=== PATIENT | female | born 1955 | race Caucasian/White ===

== ENCOUNTER → 2018-09-09 19:18 | Outpatient (CLI) | payer OTHER, SELFPAY ==
[2018-09-12 12:46] LABS: HPV APTIMA, High Risk Negative (Negative)
== END ==
PROVIDERS: Family Provider Nurse Practitioner; PCP Nurse Practitioner; Referring Provider Nurse Practitioner Women's Health; Visit Provider Nurse Practitioner Women's Health
DX: Z12.4 Encounter for screening for malignant neoplasm of cervix (principal)
CPT/HCPCS: 87624; 88175; G0145

== ENCOUNTER → 2018-09-24 12:05 | Outpatient (CLI) | payer OTHER, SELFPAY ==
--- NOTE | 2018-09-24 12:07 | BI_ITS ---
MAMMOGRAPHY - BILATERAL SCREENING REASON FOR EXAM: Female, 63 years old. Routine annual screening examination. PERTINENT HISTORY: Non-contributory. TECHNIQUE: Digital bilateral breast ayla (3D mammographic acquisition) in the CC and MLO projections. 2-D mediolateral oblique (MLO) and craniocaudad (CC) views of both breasts were obtained. CAD: Full Field Digital Mammography with Computer Added Detection was performed. COMPARISON: Comparison is made with prior study dated June 21, 2017. FINDINGS: Breast Composition: There are scattered areas of fibroglandular density. There are no dominant masses or suspicious calcifications. No other significant abnormalities are identified. There has been no significant change since the prior study. BI/SCREENING MAMM (CAD), BILAT IMPRESSION: Stable bilateral screening mammogram. Yearly follow-up mammogram recommended. (A) ASSESSMENT CATEGORY: BIRADS Category 1: Negative. A letter regarding these results will be sent to the patient by the facility within 30 days. Approximately 10% of breast cancers are not detected by mammography. A normal mammogram should not delay biopsy of a clinically suspicious abnormality. [id number] Electronically Signed: Russell Clemons MD at 14:29 EST Tel [phone], Service support ,
== END ==
PROVIDERS: Family Provider Nurse Practitioner; PCP Nurse Practitioner; Referring Provider Nurse Practitioner Women's Health; Visit Provider Nurse Practitioner Women's Health
DX: Z12.31 Encounter for screening mammogram for malignant neoplasm of breast (principal)
CPT/HCPCS: 77063; 77067

== ENCOUNTER → 2019-01-15 23:17 | Outpatient (CLI) | payer OTHER, SELFPAY ==
[2019-01-15 20:27] VITALS: BMI 24.0
== END ==
PROVIDERS: Family Provider Nurse Practitioner; PCP Nurse Practitioner; Referring Provider Nurse Practitioner; Visit Provider Nurse Practitioner
DX: N30.90 Cystitis, unspecified without hematuria (principal)
CPT/HCPCS: 87086; 87088

== ENCOUNTER → 2019-02-14 08:01 | Outpatient (CLI) | payer OTHER, SELFPAY ==
[2019-02-13 19:37] VITALS: BMI 24.0
[2019-02-14 08:32] LABS: Thyroid Stim Hormone (TSH) 1.62 uIU/mL (0.358-3.74)
== END ==
PROVIDERS: Referring Provider Nurse Practitioner; Visit Provider Nurse Practitioner
DX: E03.9 Hypothyroidism, unspecified (principal)
CPT/HCPCS: 84443

== ENCOUNTER → 2019-09-25 07:09 | Outpatient (CLI) | payer OTHER, SELFPAY ==
[2019-02-13 19:37] VITALS: BMI 24.0
[2019-09-14 18:57] VITALS: BMI 23.0
--- NOTE | 2019-09-25 07:11 | BI_ITS ---
MAMMOGRAPHY - BILATERAL SCREENING REASON FOR EXAM: Female, 64 years old. Routine annual screening examination. PERTINENT HISTORY: Non-contributory. TECHNIQUE: Digital bilateral breast jerrod (3D mammographic acquisition) in the CC and MLO projections. 2-D mediolateral oblique (MLO) and craniocaudad (CC) views of both breasts were obtained. CAD: Full Field Digital Mammography with Computer Added Detection was performed. COMPARISON: Comparison is made with prior study dated September 24, 2018 and June 21, 2017. FINDINGS: Breast Composition: There are scattered areas of fibroglandular density. There are no dominant masses or suspicious calcifications. No other significant abnormalities are identified. There has been no significant change since the prior study. BI/SCREEN MAMM (CAD) W/JERROD BILAT IMPRESSION: Stable bilateral screening mammogram. Yearly follow-up mammogram recommended. (A) ASSESSMENT CATEGORY: BIRADS Category 1: Negative. A letter regarding these results will be sent to the patient by the facility within 30 days. Approximately 10% of breast cancers are not detected by mammography. A normal mammogram should not delay biopsy of a clinically suspicious abnormality. [id number] Electronically Signed: Russell Clemons, at 9:07 EST , Service support ,
== END ==
PROVIDERS: Family Provider Nurse Practitioner; Referring Provider Nurse Practitioner Women's Health; Visit Provider Nurse Practitioner Women's Health
DX: Z12.31 Encounter for screening mammogram for malignant neoplasm of breast (principal)
CPT/HCPCS: 77063; 77067

== ENCOUNTER → 2020-04-05 22:11 | Outpatient (CLI) | payer OTHER, SELFPAY ==
[2020-02-09 17:19] VITALS: BMI 23.0
[2020-04-05 22:25] LABS: Absolute Lymphocyte Count 2.27 X10^3/uL (0.83-4.51); Absolute Neutrophil Count 3.5 X10^3/uL (2.0-7.7); Basophil# 0.05 X10^3/uL; Basophil% 0.8 % (0-1); Eosinophil# 0.12 X10^3/uL; Eosinophils% 1.8 % (0-5); Hematocrit 40.7 % (37-47); Hemoglobin 13.1 g/dL (12.0-15.0); Lymphocyte # 2.27 X10^3/ul (4.0); Lymphocyte % 34.8 % (19-41); Mean Corp Hgb Conc 32.2 g/dL (32-36); Mean Corpuscular Hgb 29.7 pg (27.0-32.0); Mean Corpuscular Volume 92.3 fL (81-99); Mean Platelet Vol. 10.8 fl (6.2-12.0); Monocyte# 0.61 X10^3/uL; Monocyte% 9.3 % (0-10); NRBC Flagged by Analyzer 0 % (0-5); Neutrophil # 3.47 X10^3/uL (2.7-7.7); Neutrophil % 53.1 % (47-70); Platelet Count 282 K/mm3 (150-450); RBC Distribution Width CV 13.1 % (11.6-14.6); RBC Distribution Width SD 44.2 fl (35.1-43.9); Red Blood Count 4.41 M/mm3 (4.2-5.4); White Blood Count 6.5 K/mm3 (4.4-11.0)
[2020-04-05 22:51] LABS: ALB/GLOB Ratio 1.2 RATIO (0.9-2.4); AST(SGOT) 25 U/L (15-37); Alanine Aminotransfer ALT/SGPT 29 U/L (13-56); Albumin, Serum 4.3 g/dL (3.2-5.0); Alkaline Phosphatase 84 U/L (45-117); Anion Gap 7 (5-15); BUN 19 mg/dL (7-18); BUN/Creat Ratio 23.2 RATIO (10-20); Calcium,Total 9.3 mg/dL (8.5-10.1); Chloride 107 mmol/L (98-107); Creatinine, Serum 0.82 mg/dL (0.55-1.02); EST Glomerular Filtration Rate 75 mL/min (>60); Est Glom Filt Rate - Afr Amer 91 mL/min (>60); Globulin 3.6 g/dL (2.2-4.2); Glucose 92 mg/dL (74-106); Potassium 4.1 mmol/L (3.5-5.1); Protein, Total 7.9 g/dL (6.4-8.2); Sodium Level 141 mmol/L (136-145); Thyroid Stim Hormone (TSH) 1.01 uIU/mL (0.358-3.74)
== END ==
PROVIDERS: Visit Provider Nurse Practitioner
DX: E03.9 Hypothyroidism, unspecified (principal); G25.0 Essential tremor
CPT/HCPCS: 80053; 84443; 85025

== ENCOUNTER → 2020-09-26 14:13 | Outpatient (CLI) | payer OTHER, SELFPAY ==
[2019-09-14 18:57] VITALS: BMI 23.0
[2020-07-27 08:43] VITALS: BMI 23.0
--- NOTE | 2020-09-26 14:15 | BI_ITS ---
MAMMOGRAPHY - BILATERAL SCREENING REASON FOR EXAM: Female, 65 years old. Routine annual screening examination. PERTINENT HISTORY: Non-contributory. TECHNIQUE: Digital bilateral breast jerrod (3D mammographic acquisition) in the CC and MLO projections. 2-D mediolateral oblique (MLO) and craniocaudad (CC) views of both breasts were obtained. CAD: Full Field Digital Mammography with Computer Added Detection was performed. COMPARISON: Comparison is made with prior study dated 09/25/2019 and 09/24/2018. FINDINGS: Breast Composition: There are scattered areas of fibroglandular density. There are no dominant masses or suspicious calcifications. No other significant abnormalities are identified. There has been no significant change since the prior study. BI/SCREEN MAMM (CAD) W/JERROD BILAT IMPRESSION: Stable bilateral screening mammogram. Yearly follow-up mammogram recommended. (A) ASSESSMENT CATEGORY: BIRADS Category 1: Negative. A letter regarding these results will be sent to the patient by the facility within 30 days. Approximately 10% of breast cancers are not detected by mammography. A normal mammogram should not delay biopsy of a clinically suspicious abnormality. [id number] Electronically Signed: Russell Clemons, at 15:38 EST , Service support ,
== END ==
PROVIDERS: Referring Provider Obstetrics & Gynecology; Visit Provider Obstetrics & Gynecology
DX: Z12.31 Encounter for screening mammogram for malignant neoplasm of breast (principal)
CPT/HCPCS: 77063; 77067

== ENCOUNTER → 2021-04-24 | Outpatient (CLI) | payer OTHER, SELFPAY ==
[2021-04-24 18:10] VITALS: BMI 23.5
[2021-04-24 22:14] LABS: Absolute Lymphocyte Count 2.26 X10^3/uL (0.83-4.51); Absolute Neutrophil Count 3.3 X10^3/uL (2.0-7.7); Basophil# 0.05 X10^3/uL; Basophil% 0.8 % (0-1); Eosinophil# 0.11 X10^3/uL; Eosinophils% 1.7 % (0-5); Hematocrit 39.8 % (37-47); Hemoglobin 12.9 g/dL (12.0-15.0); Lymphocyte # 2.26 X10^3/ul (0.83-4.51); Lymphocyte % 35.6 % (19-41); Mean Corp Hgb Conc 32.4 g/dL (32-36); Mean Corpuscular Hgb 29.6 pg (27.0-32.0); Mean Corpuscular Volume 91.3 fL (81-99); Mean Platelet Vol. 11.2 fl (6.2-12.0); Monocyte# 0.58 X10^3/uL; Monocyte% 9.1 % (0-10); NRBC Flagged by Analyzer 0 % (0-5); Neutrophil # 3.33 X10^3/uL (2.7-7.7); Neutrophil % 52.6 % (47-70); Platelet Count 294 K/mm3 (150-450); RBC Distribution Width CV 13.2 % (11.6-14.6); RBC Distribution Width SD 44.6 fl (35.1-43.9); Red Blood Count 4.36 M/mm3 (4.2-5.4); White Blood Count 6.3 K/mm3 (4.4-11.0)
[2021-04-24 22:38] LABS: ALB/GLOB Ratio 1.1 RATIO (0.9-2.4); AST(SGOT) 19 U/L (15-37); Alanine Aminotransfer ALT/SGPT 25 U/L (13-56); Albumin, Serum 3.9 g/dL (3.2-5.0); Alkaline Phosphatase 88 U/L (45-117); Anion Gap 9 (5-15); BUN 13 mg/dL (7-18); BUN/Creat Ratio 19.1 RATIO (10-20); Calcium,Total 9.1 mg/dL (8.5-10.1); Chloride 106 mmol/L (98-107); Cholesterol 226 mg/dL (200); Creatinine, Serum 0.68 mg/dL (0.55-1.02); EST Glomerular Filtration Rate 93 mL/min (>60); Est Glom Filt Rate - Afr Amer 112 mL/min (>60); Globulin 3.5 g/dL (2.2-4.2); Glucose 84 mg/dL (74-106); High Density Lipoprotein 74 mg/dL; Potassium 3.7 mmol/L (3.5-5.1); Protein, Total 7.4 g/dL (6.4-8.2); Sodium Level 141 mmol/L (136-145); Thyroid Stim Hormone (TSH) 1.33 uIU/mL (0.358-3.74); Triglycerides 83 mg/dL; Very Low Density Lipoprotein 17 mg/dL (5-40)
== END | disposition home or self-care (01) ==
PROVIDERS: PCP Nurse Practitioner; Referring Provider Nurse Practitioner; Visit Provider Nurse Practitioner
DX: E03.9 Hypothyroidism, unspecified (principal)
CPT/HCPCS: 80053; 80061; 84443; 85025

== ENCOUNTER 2022-01-08 07:55 | Outpatient (CLI) | payer OTHER, SELFPAY ==
--- NOTE | 2022-01-08 07:57 | BI_ITS ---
MAMMOGRAPHY - BILATERAL SCREENING REASON FOR EXAM: Female, 66 years old. Routine annual screening examination. PERTINENT HISTORY: Non-contributory. TECHNIQUE: Digital bilateral breast jerrod (3D mammographic acquisition) in the CC and MLO projections. 2-D mediolateral oblique (MLO) and craniocaudad (CC) views of both breasts were obtained. CAD: Full Field Digital Mammography with Computer Added Detection was performed. COMPARISON: Comparison is made with prior study dated 2019 and 09/25/2019. FINDINGS: Breast Composition: The breasts are heterogeneously dense, which may obscure small masses. There are no dominant masses or suspicious calcifications. No other significant abnormalities are identified. There has been no significant change since the prior study. BI/SCRN MAMM (CAD)W/JERROD BILAT IMPRESSION: Stable bilateral screening mammogram. Yearly follow-up mammogram recommended. (A) ASSESSMENT CATEGORY: BIRADS Category 1: Negative. A letter regarding these results will be sent to the patient by the facility within 30 days. Approximately 10% of breast cancers are not detected by mammography. A normal mammogram should not delay biopsy of a clinically suspicious abnormality. [id number] Electronically Signed: Russell Clemons MD at 9:42 EST ,
== END 2022-01-08 23:59 | disposition home or self-care (01) ==
LOC: OPBI 07:55
PROVIDERS: PCP Nurse Practitioner; Visit Provider Nurse Practitioner Women's Health
DX: Z12.31 Encounter for screening mammogram for malignant neoplasm of breast (principal)
CPT/HCPCS: 77063; 77067

== ENCOUNTER 2022-02-05 07:28 | Outpatient (CLI) | payer OTHER, SELFPAY ==
[2022-02-05 08:19] LABS: Cholesterol 250 mg/dL (200); Glucose 101 mg/dL (74-106); High Density Lipoprotein 72 mg/dL; Triglycerides 89 mg/dL; Very Low Density Lipoprotein 18 mg/dL (5-40)
[2022-02-05 09:04] LABS: Vitamin D,25 Hydroxy 24.3 ng/mL
== END 2022-02-05 23:59 | disposition home or self-care (01) ==
LOC: PAVLAB 07:29
PROVIDERS: PCP Nurse Practitioner; Referring Provider Nurse Practitioner Women's Health; Visit Provider Nurse Practitioner Women's Health
DX: Z13.1 Encounter for screening for diabetes mellitus (principal); Z13.220 Encounter for screening for lipoid disorders; Z13.21 Encounter for screening for nutritional disorder
CPT/HCPCS: 36415; 80061; 82306; 82947

== ENCOUNTER → 2022-05-08 | Outpatient (CLI) | payer OTHER, MEDICARE, SELFPAY ==
[2022-05-08 22:18] LABS: Absolute Lymphocyte Count 1.99 X10^3/uL (0.83-4.51); Absolute Neutrophil Count 3.6 X10^3/uL (2.0-7.7); Basophil# 0.04 X10^3/uL; Basophil% 0.6 % (0-1); Eosinophil# 0.23 X10^3/uL; Eosinophils% 3.6 % (0-5); Hematocrit 39.3 % (37-47); Hemoglobin 12.9 g/dL (12.0-15.0); Lymphocyte # 1.99 X10^3/ul (0.83-4.51); Lymphocyte % 31.4 % (19-41); Mean Corp Hgb Conc 32.8 g/dL (32-36); Mean Corpuscular Hgb 29.9 pg (27.0-32.0); Mean Platelet Vol. 11.6 fl (6.2-12.0); Monocyte# 0.51 X10^3/uL; Monocyte% 8.1 % (0-10); NRBC Flagged by Analyzer 0 % (0-5); Neutrophil # 3.55 X10^3/uL (2.7-7.7); Neutrophil % 56.1 % (47-70); Platelet Count 280 K/mm3 (150-450); RBC Distribution Width CV 13.2 % (11.6-14.6); Red Blood Count 4.32 M/mm3 (4.2-5.4); White Blood Count 6.3 K/mm3 (4.4-11.0)
[2022-05-08 22:36] LABS: ALB/GLOB Ratio 1.1 RATIO (0.9-2.4); AST(SGOT) 23 U/L (15-37); Alanine Aminotransfer ALT/SGPT 31 U/L (13-56); Albumin, Serum 3.8 g/dL (3.2-5.0); Alkaline Phosphatase 86 U/L (45-117); Anion Gap 6 (5-15); BUN 19 mg/dL (7-18); BUN/Creat Ratio 26.9 RATIO (10-20); Calcium,Total 8.8 mg/dL (8.5-10.1); Chloride 107 mmol/L (98-107); Cholesterol 232 mg/dL (200); Creatinine, Serum 0.71 mg/dL (0.55-1.02); EST Glomerular Filtration Rate 88 mL/min (>60); Est Glom Filt Rate - Afr Amer 107 mL/min (>60); Globulin 3.4 g/dL (2.2-4.2); Glucose 131 mg/dL (74-106); High Density Lipoprotein 58 mg/dL; Potassium 3.8 mmol/L (3.5-5.1); Protein, Total 7.2 g/dL (6.4-8.2); Sodium Level 141 mmol/L (136-145); Thyroid Stim Hormone (TSH) 0.41 uIU/mL (0.358-3.74); Triglycerides 216 mg/dL; Very Low Density Lipoprotein 43 mg/dL (5-40)
== END | disposition home or self-care (01) ==
PROVIDERS: Visit Provider Nurse Practitioner
DX: E03.9 Hypothyroidism, unspecified (principal)
CPT/HCPCS: 80053; 80061; 84443; 85025

== ENCOUNTER → 2023-05-15 | Outpatient (CLI) | payer OTHER, MEDICARE, SELFPAY ==
[2023-05-15 21:12] LABS: Absolute Lymphocyte Count 1.77 X10^3/uL (0.83-4.51); Absolute Neutrophil Count 3.6 X10^3/uL (2.0-7.7); Basophil# 0.05 X10^3/uL; Basophil% 0.8 % (0-1); Eosinophil# 0.16 X10^3/uL; Eosinophils% 2.6 % (0-5); Hematocrit 38.7 % (37-47); Hemoglobin 13.1 g/dL (12.0-15.0); Lymphocyte # 1.77 X10^3/ul (0.83-4.51); Lymphocyte % 28.8 % (19-41); Mean Corp Hgb Conc 33.9 g/dL (32-36); Mean Corpuscular Hgb 30.6 pg (27.0-32.0); Mean Corpuscular Volume 90.4 fL (81-99); Mean Platelet Vol. 11.2 fl (6.2-12.0); Monocyte# 0.58 X10^3/uL; Monocyte% 9.4 % (0-10); NRBC Flagged by Analyzer 0 % (0-5); Neutrophil # 3.58 X10^3/uL (2.7-7.7); Neutrophil % 58.2 % (47-70); Platelet Count 311 K/mm3 (150-450); RBC Distribution Width CV 13.2 % (11.6-14.6); RBC Distribution Width SD 43.3 fl (35.1-43.9); Red Blood Count 4.28 M/mm3 (4.2-5.4); White Blood Count 6.2 K/mm3 (4.4-11.0)
[2023-05-15 21:41] LABS: ALB/GLOB Ratio 1.1 RATIO (0.9-2.4); AST(SGOT) 18 U/L (15-37); Alanine Aminotransfer ALT/SGPT 29 U/L (13-56); Albumin, Serum 3.9 g/dL (3.2-5.0); Alkaline Phosphatase 95 U/L (45-117); Anion Gap 9 (5-15); BUN 22 mg/dL (7-18); BUN/Creat Ratio 26.6 RATIO (10-20); Chloride 105 mmol/L (98-107); Cholesterol 234 mg/dL (200); Creatinine, Serum 0.83 mg/dL (0.55-1.02); EST Glomerular Filtration Rate 73 mL/min (>60); Est Glom Filt Rate - Afr Amer 89 mL/min (>60); Globulin 3.6 g/dL (2.2-4.2); Glucose 103 mg/dL (74-106); High Density Lipoprotein 68 mg/dL; Protein, Total 7.5 g/dL (6.4-8.2); Sodium Level 139 mmol/L (136-145); Thyroid Stim Hormone (TSH) 0.23 uIU/mL (0.358-3.74); Triglycerides 158 mg/dL; Very Low Density Lipoprotein 32 mg/dL (5-40)
== END | disposition home or self-care (01) ==
PROVIDERS: Visit Provider Nurse Practitioner
DX: E03.9 Hypothyroidism, unspecified (principal); E78.5 Hyperlipidemia, unspecified
CPT/HCPCS: 80053; 80061; 84443; 85025

== ENCOUNTER → 2023-08-08 | Outpatient (CLI) | payer OTHER, MEDICARE, SELFPAY | END | disposition home or self-care (01) | PROVIDERS: Visit Provider Nurse Practitioner | DX: E03.9 Hypothyroidism, unspecified (principal) | CPT/HCPCS: 84443 ==

== ENCOUNTER → 2023-12-02 | Outpatient (CLI) | payer MEDICARE, SELFPAY ==
--- NOTE | 2023-12-02 09:47 | BI_ITS ---
MAMMOGRAPHY - BILATERAL SCREENING REASON FOR EXAM: Female, 68 years old. Routine annual screening examination. PERTINENT HISTORY: Non-contributory. TECHNIQUE: Digital bilateral breast jerrod (3D mammographic acquisition) in the CC and MLO projections. 2-D mediolateral oblique (MLO) and craniocaudad (CC) views of both breasts were obtained. CAD: Full Field Digital Mammography with Computer Added Detection was performed. COMPARISON: Comparison is made with prior study dated December 31, 2021 and September 26, 2020. FINDINGS: Breast Composition: The breasts are heterogeneously dense, which may obscure small masses. There are no dominant masses or suspicious calcifications. No other significant abnormalities are identified. There has been no significant change since the prior study. BI/SCRN MAMM (CAD)W/JERROD BILAT IMPRESSION: Stable bilateral screening mammogram. Yearly follow-up mammogram recommended. (A) ASSESSMENT CATEGORY: BIRADS Category 1: Negative. A letter regarding these results will be sent to the patient by the facility within 30 days. Approximately 10% of breast cancers are not detected by mammography. A normal mammogram should not delay biopsy of a clinically suspicious abnormality. [id number] Electronically Signed: Russell Clemons MD at 14:48 EST ,
== END | disposition home or self-care (01) ==
PROVIDERS: PCP Nurse Practitioner; Referring Provider Nurse Practitioner Women's Health; Visit Provider Nurse Practitioner Women's Health
DX: Z12.31 Encounter for screening mammogram for malignant neoplasm of breast (principal)
CPT/HCPCS: 77063; 77067

== ENCOUNTER → 2024-09-09 | Outpatient (CLI) | payer MEDICARE, SELFPAY ==
--- OUTSIDE RECORDS SUMMARY | 2024-09-10 01:21 | XMS RPT_ITS | CCD ---
Author Organization [facility] Care Team Providers Care Commodities Broker Name Role Phone David VALENCIA, Trini Gonsalez Unavailable Mikcy KIM, Raiza Stacy Unavailable [phone] Unavailable Primary Care Provider Unavailabl e Allergies Allergy Classification Reported Allergen(s) Allergy Type Date of Onset Reaction(s) Facility (2 sources) penicillin v drug allergy 7 [facility] (1 source) Penicillins Propensity to adverse reactions 6 Rash [facility] (1 source) Ragweed Propensity to adverse reactions 8 [facility] Work Phone: Medications Current Medications Medication Drug Class(es) Dates Sig (Normalized) Sig (Original) calcium citrate 1500 mg / cholecalciferol 200 unt oral tablet (1 source) Vitamin D Start: 12-06-2008 calcium citrate/vitamin d3(CITRACAL + D 315 MG-200 UNIT TAB) Take two(2) tablets twice daily. 0 12/06/2008 Active cetirizine hydrochloride 10 mg oral tablet (1 source) Histamine-1 Receptor Antagonist Start: 09-27-2006 ZYRTEC 10 MG TAB Indications: Routine gynecological examination as needed 0 09/27/2006 Active multivitamin (DAILY MULTIVITAMIN) ORAL tablet (1 source) Start: 12-12-2010 take 1 tablet by mouth once daily multivitamin (DAILY MULTIVITAMIN) ORAL tablet Indications: Osteopenia Take one(1) tablet daily. 90 Tab 3 12/12/2010 Active Completed/Discontinued Medications Medication Drug Class(es) Dates Sig (Normalized) Sig (Original) levothyroxine sodium 0.1 mg oral tablet (3 sources) l-Thyroxine Start: 06-13-2017 take 1 tablet by mouth once daily SYNTHROID 100 MCG TABS One tablet by mouth daily LEVOTHYROXINE SODIUM [id number] Trini Bowerss CENA Start: 06-13-2017 take 1 tablet by sherrill th once daily SYNTHROID 100 MCG TABS One tablet by mouth daily LEVOTHYROXINE SODIUM [id number] Trini Moyatings CENA LEVOTHYROXINE SO DIUM (SYNTHROID ORAL) Take by mouth. 0 Active Problems Active Problems Problem Classification Problem Date Documented Date Episodic/Chronic Menopausal disorders (2 sources) Atrophic vaginitis; Translations: [Postmenopausal atrophic vaginitis] Onset: 09-27-2006 Resolved: 05-26-2013 05-27-2014 Chronic Thyroid disorders (1 source) Hypothyroidism; Translations: [Hypothyroidism, unspecified] Onset: 05-26-2013 05-26-2013 Chronic Unclassified (1 source) Screening mammography ; Translations: [Encounter for screening mammogram for malignant neoplasm of breast] Onset: 06-13-2017 06-13-2017 Unclassified (1 source) Gynecologic examination ; Translations: [Encounter for gynecological examination (general) (routine) without abnormal findings] Onset: 06-13-2017 06-13-2017 Past or Other Problems Problem Classification Problem Date Documented Da te Episodic/Chronic Other bone disease and musculoskeletal deformities (1 source) Osteopenia; Translations: [Other specified disorders of bone density and structure, unspecified site] Onset: 05-27-2014 05-27-2014 Episodic Results Test Name Value Interpretation Reference Range Facility XR Pelvis and Hip - right AP and Lateral frogon 06-04-2024 IMPRESSION: No acute fracture or dislocation of the pelvis and right hip. Tracer Clerk: LYDIA Transcribe Date/Time: Jun 04 2024 2:11P Dictated by : JIMMIE VITALE MD This examination was interpreted and the report reviewed and electronically signed by: JIMMIE VITALE MD on Jun 04 2024 2:12PM [facility] * * *Final Report* * * DATE OF EXAM: Jun 04 2024 8:43AM LDX 5352 - XR HIP 3V PELV+ AP/LAT RT / PROCEDURE REASON: M25.551pain in the right hip * * * * Physician Interpretation * * * * PELVIS AND RIGHT HIP X-RAY SERIES HISTORY: M25.551pain in the right hip COMPARISON: None available. TECHNIQUE: AP Pelvis, AP Hip and Frog Leg Lateral View of Hip RESULT: Mild right-sided degenerative changes. No fracture or dislocation. [facility] Provider, [facility] [place] - 06/04/2024 * * *Final Report* * * DATE OF EXAM: Jun 04 2024 8:43AM LDX 5352 - XR HIP 3V PELV+ AP/LAT RT / PROCEDURE REASON: M25.551pain in the right hip * * * * Physician Interpretation * * * * PELVIS AND RIGHT HIP X-RAY SERIES HISTORY: M25.551pain in the right hip COMPARISON: None available. TECHNIQUE: AP Pelvis, AP Hip and Frog Leg Lateral View of Hip RESULT: Mild right-sided degenerative changes. No fracture or dislocation. IMPRESSION IMPRESSION: No acute fracture or dislocation of the pelvis and right hip. Tracer Clerk: PSCB Transcribe Date/Time: Jun 04 2024 2:11P Dictated by : JIMMIE VITALE MD This examination was interpreted and the report reviewed and electronically signed by: JIMMIE VITALE MD on Jun 04 2024 2:12PM EST [facility] Radiology Study observation (narrative) [facility] XR Pelvis and Hip - right AP and Lateral frogOrdered By: Cc Provider on 06-04-2024 [facility] Office Visit: est annualon 0 06-13-2017 Documentation of current medications (procedure) Done Invalid Interpretation Code [facility] Fall risk assessment No [facility] Protein mass conc Done [facility] Tobacco smoking status NHIS Never [facility] Tobacco smoking status TXIS Never smoker [facility] Tobacco use [facility] Never smoker Invalid Interpretation Code [facility] Office Visit: est annualon 0 06-11-2016 Breast Mammogram screening Normal Bilateral [facility] Office Visit: est annualon 0 11-11-2012 General categories [Interpretation] of Cervical or vaginal smear or scraping by Cyto stain Normal [facility] Vital Signs Date Time Vital Sign Value Performing Clinician Facility 06-13-2017 09:21-0400 BMI (Body Mass Index) 22.62 kg/m2 Trini Hernandez NP [facility] 06-13-2017 09:21-0400 Body Temperature 97.2 [degF] Trini Hernandez [facility] 06-13-2017 09:21-0400 BP Diastolic 73 mm[Hg] Trini Hernandez CENA [facility] 06-13-2017 09:21-0400 BP Systolic 112 mm[Hg] Trini Hernandez CENA [facility] 06-13-2017 09:21-0400 Height 162.56 cm Trini Hernandez CE[facility] 06-13-2017 09:21-0400 Pulse (Heart Rate) 63 /min Trini Hernandez NP [facility] 06-13-2017 09:21-0400 Respiratory Rate 16 /min Trini Hernandez [facility] 06-13-2017 09:21-0400 Weight 59.78 kg Trini Hernandez NP [facility] Encounters Encounter Date Encounter Type Care Provider Facility Start: 06-04-2024 End: 06-04-2024 Subsequent hospital visit by physician [facility] Comment on above: Pain in right hip [M 25.551] Procedures Date Procedure Procedure Detail Performing Clinician Start: 06-04-2024 Radex hip unilateral with pelvis 2-3 views Fernanda Hammonds APRN.CNP Work Phone: Start: 06-13-2017 Gynecologic examination Routine gynecological exam Raiza Weeks MD Start: 06-13-2017 Screening mammography Mammogram yearly screening Raiza Weeks MD Start: 05-27-2013 Colonoscopy [facility] Start: 05-26-2013 Lipid 1996 panel - Serum or Plasma [facility] Plan of Treatment Date Care Activity Detail Author Start: 07-12-2024 Influenza vaccination Influenza Vaccine (#1) [facility] Start: 12-30-2023 Covid-19 Vaccine ( season) Covid-19 Vaccine ( season) [facility] Start: 11-11-2023 Advance Directive Discussion Advance Directive Discussion [facility] Start: 2022 Pneumococcal Vaccine: 65+ (1 of 1 - PCV) Pneumococcal Vaccine: 65+ (1 of 1 - PCV) [facility] Start: 2022 Screening for osteoporosis Bone Density Screening [facility] Start: 05-26-2018 Lipid panel Lipid Screening [facility] Start: 06-20-2017 Screening for malignant neoplasm of breast Mammogram Screening [facility] Start: 06-13-2017 End: 06-13-2017 Appointment Appointment [facility] Start: 06-13-2017 End: 06-13-2017 Mammogram, screening Mammogram, Screening, both breasts [facility] Start: 2017 RSV Vaccine (1 - 1-dose 60+ series) RSV Vaccine (1 - 1-dose 60+ series) [facility] Start: 05-27-2016 Screening for malignant neoplasm of colon [facility] Start: 05-26-2016 Diabetes Screening Diabetes Screening [facility] Start: 2002 Screening for malignant neoplasm of colon [facility] Start: 02-27-1976 Urine microalbumin profile DTaP,Tdap,Td Vaccine (1 - Tdap) [facility] Start: 1975 Anxiety Screening Anxiety Screening [facility] Start: 1975 Depression Screening Depression Screening [facility] Start: 1975 Hepatitis C screening Hepatitis C Screening [facility] Immunizations Immunization Date Immunization Notes Care Provider Fa [facility] 09-02-2023 influenza virus vacc ine, unspecified formulation Xr Hosp [facility] Payers Date Payer Category Payer Medicare [employer] MEDICARE A ETNA MEDICARE PPO [id number] 2023-Present [phone] [address] [place] [address] PPO [id number] Social History Date Type Detail Facility Start: 05-27-2014 Tobacco smoking stat us NHIS Never smoked tobacco [facility] Start: 05-27-2014 Tobacco use and exposure Smoke less tobacco non-user [facility] Start: 06-28-2022 Alcohol intake Current drinke r of alcohol (finding) [facility] Start: 1955 Sex Assigned At Not on file [facility] Gender identity Not on file [facility] History of Present illness Narrative 06-04-2024 Kian Gann, CT - 06/04/2024 8:00 AM EDT Note Date & Type Note Facility 06-04-2024 History of Presen t illness Narrative Radiology Service Progress Note PATIENT NAME: Holly Bates DATE OF SERVICE: June 04, 2024 TIME: 8:49 AM PATIENT IDENTITY VERIFICATION COMPLETED USING TWO (2) IDENTIFIERS: Name and Date of confirmed by patient verbally. FALL SCREENING: Has the patient had 2 falls in the last year or 1 fall with injury or currently using an Ambulatory Assistive Device (Walker, Cane, Wheelchair, Crutches, etc.)? No PATIENT GENDER DATA: Female. status: : No status: NO. PATIENT RELEVANT IMPLANT DATA REVIEWED: Not Applicable PATIENT PRESENTS WITH AN IMPLANTABLE OR ATTACHED POLISHING WHEEL REPAIRER: No RADIOLOGY DEPARTMENT: General X-ray: Exam(s) Completed: Pelvis X-Ray: Pelvis with Hip Right PERIPHERAL IV DATA: Not applicable SIGNED BY: RAHUL Roy June 04, 2024 8:49 AM documented in this encounter [facility] Additional Source Comments Source Comments (unrecognize d section and content) In the event this informatio n is protected by the Federal Confidentiality of Alcohol and Drug Abuse Patient Records regulations: The Federal rules restrict any use of the information to criminally investigate or prosecute any alcohol or drug abuse patient.[facility] FOR RECORDS PERTAINING TO PATIENTS WHO ARE OR HAVE BEEN ENROLLED IN A CHEMICAL DEPENDENCY/SUBSTANCEABUSE PROGRAM, SOME INFORMATION MAY BE OMITTED. This clinical summary was aggregated from multiple sources. Caution should be exercised in using it in the provision of clinical care. This summary normalizes information from multiple sources, and as a consequence, information in this document may materially change the coding, format and clinical context of patient data. In addition, data may be omitted in some cases. CLINICAL DECISIONS SHOULD BE BASED ON THE PRIMARY CLINICAL RECORDS. [facility] provides no warranty or guarantee of the accuracy or completeness of information in this document.
[2024-09-10 01:41] LABS: Absolute Lymphocyte Count 1.29 X10^3/uL (0.83-4.51); Absolute Neutrophil Count 5.2 X10^3/uL (2.0-7.7); Basophil# 0.03 X10^3/uL; Basophil% 0.4 % (0-1); Eosinophil# 0.06 X10^3/uL; Eosinophils% 0.8 % (0-5); Hematocrit 39.8 % (37-47); Hemoglobin 12.6 g/dL (12.0-15.0); Lymphocyte # 1.29 X10^3/ul (0.83-4.51); Lymphocyte % 17.9 % (19-41); Mean Corp Hgb Conc 31.7 g/dL (32-36); Mean Corpuscular Hgb 30.2 pg (27.0-32.0); Mean Corpuscular Volume 95.4 fL (81-99); Mean Platelet Vol. 11.3 fl (6.2-12.0); Monocyte# 0.58 X10^3/uL; NRBC Flagged by Analyzer 0 % (0-5); Neutrophil # 5.24 X10^3/uL (2.7-7.7); Neutrophil % 72.6 % (47-70); Platelet Count 316 K/mm3 (150-450); RBC Distribution Width CV 13.2 % (11.6-14.6); RBC Distribution Width SD 46.8 fl (35.1-43.9); Red Blood Count 4.17 M/mm3 (4.2-5.4); White Blood Count 7.2 K/mm3 (4.4-11.0)
[2024-09-10 02:08] LABS: ALB/GLOB Ratio 1.2 RATIO (0.9-2.4); AST(SGOT) 18 U/L (15-37); Alanine Aminotransfer ALT/SGPT 27 U/L (13-56); Alkaline Phosphatase 78 U/L (45-117); Anion Gap 6 (5-15); BUN 18 mg/dL (7-18); BUN/Creat Ratio 24.9 RATIO (10-20); Chloride 106 mmol/L (98-107); Cholesterol 217 mg/dL (200); Creatinine, Serum 0.72 mg/dL (0.55-1.02); EST Glomerular Filtration Rate 85 mL/min (>60); Est Glom Filt Rate - Afr Amer 103 mL/min (>60); Globulin 3.4 g/dL (2.2-4.2); Glucose 90 mg/dL (74-106); High Density Lipoprotein 69 mg/dL; Potassium 4.4 mmol/L (3.5-5.1); Protein, Total 7.4 g/dL (6.4-8.2); Sodium Level 140 mmol/L (136-145); Triglycerides 120 mg/dL; Very Low Density Lipoprotein 24 mg/dL (5-40)
== END | disposition home or self-care (01) ==
PROVIDERS: PCP Nurse Practitioner; Referring Provider Nurse Practitioner; Visit Provider Nurse Practitioner
DX: E78.2 Mixed hyperlipidemia (principal); E03.9 Hypothyroidism, unspecified
CPT/HCPCS: 80053; 80061; 84443; 85025

== ENCOUNTER → 2024-12-23 | Outpatient (CLI) | payer MEDICARE, SELFPAY ==
--- NOTE | 2024-12-23 13:41 | BI_ITS ---
PROCEDURE: SCRN MAMM (CAD)W/JERROD BILAT REASON FOR EXAM: F, Age 69 y/o, no family history. Routine annual follow-up. TECHNIQUE: Bilateral screening digital breast tomosynthesis with 2D and 3D images. Computer aided detection. COMPARISON: Prior exam(s) dating back to January 08, 2022.. FINDINGS: The breasts are heterogeneously dense which may obscure small masses. Stable bilateral axillary lymph nodes. No suspicious masses, areas of developing architectural distortion, or suspicious calcifications. Stable examination. BI/SCRN MAMM (CAD)W/JERROD BILAT IMPRESSION: BI-RADS 2: BENIGN. RECOMMEND ANNUAL MAMMOGRAPHIC SCREENING. Follow-up code: Routine Follow-up The patient will be notified of the results by letter. Reading Location: [place] [address]
== END | disposition home or self-care (01) ==
LOC: OPBI 13:40
PROVIDERS: PCP Nurse Practitioner; Referring Provider Nurse Practitioner Women's Health; Visit Provider Nurse Practitioner Women's Health
DX: Z12.31 Encounter for screening mammogram for malignant neoplasm of breast (principal)
CPT/HCPCS: 77063; 77067

== ENCOUNTER → 2025-07-01 | Outpatient (CLI) | payer MEDICARE, SELFPAY ==
--- OUTSIDE RECORDS SUMMARY | 2025-07-01 21:59 | XMS RPT_ITS | CCD ---
Author Organization [facility] Care Team Providers Care Encoding Clerk Name Role Phone Trini Hernandez NP S Unavailable Micky KIM, Raiza Stacy Unavailable Cassius MOP WORKER, MOP WORKER-C Fernanda Primary Care Provider Cassius MOP WORKER, MOP WORKER-C Fenranda Referring Provider [phone] David MOP WORKER, MOP WORKER-C Trini Attending Provider David MOP WORKER, MOP WORKER-C Trini Attending Provider Cassius MOP WORKER, MOP WORKER-C Fernanda Primary Care Provider Cassius MOP WORKER, MOP WORKER-C Fernanda Referring Provider Unavailable Primary Care Provider Unavailmark e Cassius MOP WORKER, Fernanda Primary Care Unavailable Cassius MOP WORKER, Fernanda Attending Unavailable Cassius MOP WORKER, Fernanda Referring Unavailable Cassius MOP WORKER, Fernanda Primary Care Unavailable Trini Hernandez Attending Unavailable Trini Hernandez Referring Unavailable Cassius MOP WORKER, Fernanda Referring Unavailable Trini Hernandez Attending Unavailable Cassius MOP WORKER, Fernanda Primary Care Unavailable Allergies Allergy Classification Reported Allergen(s) Allergy Type Date of Onset Reaction(s) Facility (2 sources) penicillin v drug allergy 7 [facility] (6 sources) Penicillins; Translations: [Penicillins] Allergy to substance 6 [facility] (1 source) Ragweed Propensity to adverse reactions 8 [facility] Work Phone: Medications Current Medications Medication Drug [...] Drug Class(es) Dates Sig (Normalized) Sig (Original) cefuroxime 500 mg oral tablet (2 sources) Cephalosporin Antibacterial Start: 11-06-2022 End: 05-15-2023 take 500 mg by mouth twice daily Cefuroxime Axetil Discontinued 500 MG PO TWICE A DAY November 06, 2022 12:00am May 15, 2023 2:09pm ciprofloxacin 500 mg oral tablet (20 sources) Quinolone Antimicrobial Start: 06-04-2022 End: 11-06-2022 take 1 tablet by mouth twice daily Ciprofloxacin Hcl (Cipro) 500 mg tablet Discontinued 500 MG PO TWICE A DAY June 04, 2022 6:05pm November 06, 2022 4:54pm Start: 07-07-2021 End: 01-08-2022 take 1 tablet by mouth twice daily Ciprofloxacin Hcl (Cipro) 500 mg tablet Discontinued 500 MG PO TWICE A DAY October 26, 2021 4:22pm January 08, 2022 8:18am Start: 09-14-2019 End: 02-09-2020 take 1 tablet by mouth twice daily Ciprofloxacin Hcl (Cipro) 500 mg tablet Discontinued 500 MG PO TWICE A DAY September 14, 2019 7:03pm February 09, 2020 4:08pm Start: 01-15-2019 End: 09-10-2019 take 1 tablet by mouth twice daily Ciprofloxacin Hcl (Cipro) 500 mg tablet Discontinued 500 MG PO TWICE A DAY January 15, 2019 12:00am September 10, 2019 7:10am levothyroxine sodium 0.112 mg oral tablet (20 sources) l-Thyroxine Start: 12-25-2018 End: 05-16-2023 take 112 ug by mouth once daily Levothyroxine Discontinued 112 MCG PO DAILY 90 February 14, 2019 9:30am February 09, 2020 4:07pm Start: 09-09-2018 End: 02-14-2019 take 1 tablet by mouth once daily Levothyroxine (Synthroid) 100 mcg tablet Discontinued 100 MCG PO DAILY September 08, 2018 11:00pm February 14, 2019 9:30am Start: 06-13-2017 take 1 tablet by sherrill th once daily SYNTHROID 100 MCG TABS One tablet by mouth daily LEVOTHYROXINE SODIUM [id number] Trini S Tilton MOP WORKER Start: 06-13-2017 take 1 tablet by sherrill th once daily SYNTHROID 100 MCG TABS One tablet by mouth daily LEVOTHYROXINE SODIUM [id number] Trini S David MOP WORKER LEVOTHYROXINE SO DIUM (SYNTHROID ORAL) Take by mouth. 0 Active Problems Active Problems Problem Classification Problem Date Documented Date Episodic/Chronic Disorders of lipid metabolism (3 sources) Hyperlipidemia; Translations: [Hyperlipidemia, unspecified] Onset: 09-29-2024 05-15-2023 Chronic Menopausal disorders (2 sources) Atrophic vaginitis; Translations: [Postmenopausal atrophic vaginitis] Onset: 09-27-2006 Resolved: 05-26-2013 05-27-2014 Chronic Nutritional deficiencies (4 sources) Vitamin D deficiency; Translations: [Vitamin D deficiency, unspecified] 02-05-2022 Chronic Other connective tissue disease (1 source) Tendinitis of shoulder region; Translations: [Other enthesopathies, not elsewhere classified] 11-06-2022 Episodic Other connective tissue disease (1 source) Tendonitis of right shoulder; Translations: [Other enthesopathies, not elsewhere classified] 11-06-2022 Episodic Other hereditary and degenerative nervous system conditions (4 sources) Hereditary essential tremor; Translations: [Essential tremor] 04-05-2020 Chronic Other screening for suspected conditions (not mental disorders or infectious disease) (1 source) Encounter for screening mammogram for malignant neoplasm of breast; Translations: [Encounter for screening mammogram for malignant neoplasm of breast] Onset: 01-06-2025 Episodic Other upper respiratory disease (4 sources) Seasonal allergy; Translations: [Other seasonal allergic rhinitis] 04-25-2021 Chronic Other upper respiratory infections (2 sources) Acute maxillary sinusitis; Translations: [Acute maxillary sinusitis, unspecified] 11-06-2022 Episodic Thyroid disorders (5 sources) Acquired hypothyroidism; Translations: [Hypothyroidism, unspecified] Onset: 05-26-2013 02-09-2020 Chronic Unclassified (1 source) Screening mammography ; [...] Test Name Value Interpretation Reference Range Facility Reflow Operator Office Visit Reporton 12-23-2024 Reflow Operator Office Visit Report [facility] [address], [address] [place] [address] OFFICE VISIT Date of Service: 12/23/24 MR#: [id number] Acct: [id number] Name: HOLLY YODER IFRAH Rep #: [id number] : 1955 Provider: KENTON tabor Age/Sex: 69/F Location: [facility] Status: Signed Intake Vital Signs 09/09/24 16:59 12/23/24 13:16 12/23/24 13:20 Height 5 ft 4 in 5 ft 4 in 5 ft 4 in Weight: 144 lb 8 oz BMI 24.7 BP 122/84 H 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: No Is patient in pain?: No Allergies Penicillins Allergy (Mild, Verified 12/23/24 13:16) hives Medications ???Medication ???Instructions ???Recorded ???Confirmed ???Type levothyroxine 112 mcg tablet 112 mcg PO DAILY #90 tabs 09/09/24 12/23/24 Rx Is last menstrual period known: No Post menopausal: Yes Patient : No : No [facility] Medical History Vertigo Hypothyroidism Osteopenia Seasonal allergies Family History Other Diabetes Osteoarthritis Thyroid disorder Social History current occupational status: retired Smoking Status: Never smoker alcohol intake: current alcohol intake frequency: holidays/special occasions only substance use type: does not use caffeine: Yes Type: coffee what type of physical activity do you participate in: walking frequency: 3-4 times per week seatbelt use: always 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 Date Name GA/Weeks Outcome Route Bth Weight Infant Gen Labor Lgth Anesthesia Del Locatn Provider FOB Unknown Giovani 1975 Unknown Jeni 1980 Delivery Date: Last Updated by: Yasmine Blake Type 1 Diabetic HPI Encounter for routine gynecological examination Details: HOLLY YODER is a 69 year old who presents for annual exam. Denies concerns Last PAP: Na History of abnormal PAP: no Last mammogram: today pending History of abnormal mammogram: no Colon cancer screening: Up to date/[place] Other preventative health care screenings: Cassius Female Reproductive History Questions: metorrhagia: No and sexually active: No Menopausal Treatment: No HRT, No Vaginal Estrogen, No Osphena, No OTC treatments and No prescription non-hormonal treatment ROS Const Constitutional: Denies fatigue, weight gain or weight loss Cardio Card: Denies chest pain Resp Resp: Denies cough or dyspnea on exertion GI GI: Denies abdominal pain, bloating, change in stool character, constipation or vomiting : Reports as per HPI; Denies difficulty voiding, pelvic pain, urinary frequency, urinary incontinence, urinary urgency, vaginal discharge or vaginal pruritus Exam Const General: cooperative, healthy appearing, no acute distress and well developed Orientation: alert, oriented to person and oriented to place HENVA Head: normal to inspection Neck Neck: normal visual inspection Thyroid: thyroid normal Lymphatic: no lymphadenopathy noted Chest Breast inspection: normal inspection of the breasts and normal inspection of the axillae Breast palpation: normal palpation of the breasts, normal palpation of the axillae and no axillary lymphadenopathy Resp Effort Inspection: normal respiratory effort GI Palpation: soft, no masses and nontender Rectal Exam: deferred External Female Exam: normal external appearance and normal appearance of the urethra Urethra: normal appearance of the urethra and normal palpation Speculum Exam - Vagina: normal appearance of the vagina and normal vaginal discharge Speculum Exam - Cervix: normal appearance of the cervix Bimanual Exam- Vagina Uterus: normal bimanual exam, uterine size normal, uterine shape normal and non-tender Bimanual Exam- Adnexa, other: normal adnexae, no masses, normal and non-tender Pelvic Support: normal Neuro General: patient alert and patient oriented x3 Psych Affect: normal affect Coding Level of Care Code Pelvic/Breast Diagnoses Encounter for gynecological examination without abnormal finding Z01.419 Gynecological examination findings: abnormal findings ABSENT Assessment and Plan Assessment and Plan (1) Encounter for routine gynecological examination: Qualifiers: Gynecological examination findings: abnormal findings ABSENT Qualified Code(s): Z01.419 - Encounter for gynecological examination (general) (routine) without abnormal findings Plan Completed breast (more content not included)... Normal [facility] SCRN MAMM (CAD)W/JERROD BILATo n 12-23-2024 SCRN MAMM (CAD)W/JERROD BILAT [facility] Imaging Services [address] [place] [address] [id number] SCRN MAMM (CAD)W/JERROD BILAT MR#: [id number] Acct: [id number] Name: HOLLY YODER Rep #: [id number] : 1955 F 69 From: Russell martinez MD PCP: Fernanda Hammonds NP-Reyna Status: REG CLI Study: SCRN MAMM (CAD)W/JERROD BILAT Date of Exam: 12/12 01/05 Exam# [id number] Ordering Dr: Trini Hernandez NP MOP WORKER -C PROCEDURE: SCRN MAMM (CAD)W/JERROD BILAT REASON FOR EXAM: F, Age 69 y/o, no family history. Routine annual follow-up. TECHNIQUE: Bilateral screening digital breast tomosynthesis with 2D and 3D images. Computer aided detection. COMPARISON: Prior exam(s) dating back to January 08, 2022.. FINDINGS: The breasts are heterogeneously dense which may obscure small masses. Stable bilateral axillary lymph nodes. No suspicious masses, areas of developing architectural distortion, or suspicious calcifications. Stable examination. BI/SCRN MAMM (CAD)W/JERROD BILAT IMPRESSION: BI-RADS 2: BENIGN. RECOMMEND ANNUAL MAMMOGRAPHIC SCREENING. Follow-up code: Routine Follow-up The patient will be notified of the results by letter. Reading Location: [place] [address] CC: KENTON Hammonds; KENTON Hernandez Center Customer Service Associate: Signed Normal [facility] CBC W/Diff, Automatedon 10-3 Absolute Lymph 1.29 X10 3/uL Normal 0.83-4.51 [facility] Comment on above: Performed By: #### L 500.4050, L501.9520, L500.4100, L100.0100 #### [facility] [address] [place], [address] Absolute Neut 5.2 X10 3/uL Normal 2.0-7.7 [facility] Comment on above: Performed By: #### L 500.4050, L501.9520, L500.4100, L100.0100 #### [facility] [address] [place], [address] Basophils/100 WBC (Bld) 0.4 % Normal 0-1 [facility] Comment on above: Performed By: #### L 500.4050, L501.9520, L500.4100, L100.0100 #### [facility] [address] [place], [address] Eosinophils/100 WBC (Bld) 0.8 % Normal 0-5 [facility] Comment on above: Performed By: #### L 500.4050, L501.9520, L500.4100, L100.0100 #### [facility] [address] [place], [address] Erythrocyte distribution width (RBC) [Ratio] 13.2 % Normal 11.6-14.6 [facility] Comment on above: Performed By: #### L 500.4050, L501.9520, L500.4100, L100.0100 #### [facility] [address] [place], [address] Hematocrit (Bld) [Volume fraction] 39.8 % Normal 37-47 [facility] Comment on above: Performed By: #### L 500.4050, L501.9520, L500.4100, L100.0100 #### [facility] [address] [place], [address] Hemoglobin (Bld) [Mass/Vol] 12.6 g/dL Normal 12.0-15.0 [facility] Comment on above: Performed By: #### L 500.4050, L501.9520, L500.4100, L100.0100 #### [facility] [address] [place], [address] IG% 0.300 Normal 0.0-0.9 [facility] Comment on above: Result Comment: IG% - Immature Granulocytes (promyelocytes, myelocytes and metamyelocytes) > 1% indicates that a LEFT SHIFT is Present. Performed By: #### L 500.4050, L501.9520, L500.4100, L100.0100 #### [facility] [address] [place], [address] Lymphocytes/100 WBC (Bld) 17.9 % Low 19-41 [facility] Comment on above: Performed By: #### L 500.4050, L501.9520, L500.4100, L100.0100 #### [facility] [address] [place], [address] MCH (RBC) [Entitic mass] 30.2 pg Normal 27.0-32.0 [facility] Comment on above: Performed By: #### L 500.4050, L501.9520, L500.4100, L100.0100 #### [facility] [address] [place], [address] MCHC (RBC) [Mass/Vol] 31.7 g/dL Low 32-36 [facility] Comment on above: Performed By: #### L 500.4050, L501.9520, L500.4100, L100.0100 #### [facility] [address] [place], [address] MCV (RBC) [Entitic vol] 95.4 fL Normal 81-99 [facility] Comment on above: Performed By: #### L 500.4050, L501.9520, L500.4100, L100.0100 #### [facility] [address] [place], [address] Monocytes/100 WBC (Bld) 8.0 % Normal 0-10 [facility] Comment on above: Performed By: #### L 500.4050, L501.9520, L500.4100, L100.0100 #### [facility] [address] [place], [address] Neutrophils/100 WBC (Bld) 72.6 % High 47-70 [facility] Comment on above: Performed By: #### L 500.4050, L501.9520, L500.4100, L100.0100 #### [facility] [address] [place], [address] Nucleated RBC (Bld) [#/Vol] 0 10*3/uL Normal 0-5 [facility] Comment on above: Performed By: #### L 500.4050, L501.9520, L500.4100, L100.0100 #### [facility] [address] [place], [address] Platelet mean volume (Bld) [Entitic vol] 11.3 fL Normal 6.2-12.0 [facility] Comment on above: Performed By: #### L 500.4050, L501.9520, L500.4100, L100.0100 #### [facility] [address] [place], [address] Platelets (Bld) [#/Vol] 316 10*3/uL Normal 150-450 [facility] Comment on above: Performed By: #### L 500.4050, L501.9520, L500.4100, L100.0100 #### [facility] [address] [place], [address] RBC (Bld) [#/Vol] 4.17 10*6/uL Low 4.2-5.4 [facility] Comment on above: Performed By: #### L 500.4050, L501.9520, L500.4100, L100.0100 #### [facility] [address] [place], [address] RDW SD 46.8 fl High 35.1-43.9 [facility] Comment on above: Performed By: #### L 500.4050, L501.9520, L500.4100, L100.0100 #### [facility] [address] [place], [address] WBC (Bld) [#/Vol] 7.2 10*3/uL Normal 4.4-11.0 [facility] Comment on above: Performed By: #### L 500.4050, L501.9520, L500.4100, L100.0100 #### [facility] [address] [place], [address] [facility] Albumin [Mass/Vol] 4.0 g/dL Normal 3.2-5.0 [facility] Comment on above: Performed By: #### L 500.4050, L501.9520, L500.4100, L100.0100 #### [facility] [address] [place], [address] Albumin/Globulin [Mass ratio] 1.2 {ratio} Normal 0.9-2.4 [facility] Comment on above: Performed By: #### L 500.4050, L501.9520, L500.4100, L100.0100 #### [facility] [address] [place], [address] ALK P 78 U/L Normal 45-117 [facility] Comment on above: Performed By: #### L 500.4050, L501.9520, L500.4100, L100.0100 #### [facility] [address] [place], [address] ALT [Catalytic activity/Vol] 27 U/L Normal 13-56 [facility] Comment on above: Performed By: #### L 500.4050, L501.9520, L500.4100, L100.0100 #### [facility] [address] [place], [address] AST [Catalytic activity/Vol] 18 U/L Normal 15-37 [facility] Comment on above: Performed By: #### L 500.4050, L501.9520, L500.4100, L100.0100 #### [facility] [address] [place], [address] Bilirubin [Mass/Vol] 0.50 mg/dL Normal 0.20-1.00 [facility] Comment on above: Result Comment: For patients on eltrombopag therapy, use of Dimension Rake TBIL is not recommended. Performed By: #### L 500.4050, L501.9520, L500.4100, L100.0100 #### [facility] [address] [place], [address] BUN/CRE 24.9 RATIO High 10-20 [facility] Comment on above: Performed By: #### L 500.4050, L501.9520, L500.4100, L100.0100 #### [facility] [address] [place], [address] CA,Total 9.0 mg/dL Normal 8.5-10.1 [facility] Comment on above: Performed By: #### L 500.4050, L501.9520, L500.4100, L100.0100 #### [facility] [address] [place], [address] Chloride [Moles/Vol] 106 mmol/L Normal 98-107 [facility] Comment on above: Performed By: #### L 500.4050, L501.9520, L500.4100, L100.0100 #### [facility] [address] [place], [address] CO2 [Moles/Vol] 28.0 mmol/L Normal 21.0-32.0 [facility] Comment on above: Performed By: #### L 500.4050, L501.9520, L500.4100, L100.0100 #### [facility] [address] [place], [address] Creatinine [Mass/Vol] 0.72 mg/dL Normal 0.55-1.02 [facility] Comment on above: Result Comment: The validity of the calculated GFR GFRAA in patients over 70 years has not been determined. Clinical correlation is essential. Performed By: #### L 500.4050, L501.9520, L500.4100, L100.0100 #### [facility] [address] [place], [address] EST GFR - AA 103 mL/min Normal >60 [facility] Comment on above: Result Comment: Afri can Moldovan GFR Calc Performed By: #### L 500.4050, L501.9520, L500.4100, L100.0100 #### [facility] [address] [place], [address] GAP 6 Normal 5-15 [facility] Comment on above: Performed By: #### L 500.4050, L501.9520, L500.4100, L100.0100 #### [facility] [address] [place], [address] GFR/1.73 sq M.predicted among non-blacks MDRD (S/P/Bld) [Vol rate/Area] 85 mL/min/{1.73_m2} Normal >60 [facility] Comment on above: Result Comment: Non- GFR Calc Performed By: #### L 500.4050, L501.9520, L500.4100, L100.0100 #### [facility] [address] [place], [address] Globulin (S) [Mass/Vol] 3.4 g/dL Normal 2.2-4.2 [facility] Comment on above: Performed By: #### L 500.4050, L501.9520, L500.4100, L100.0100 #### [facility] [address] [place], [address] Glucose [Mass/Vol] 90 mg/dL Normal 74-106 [facility] Comment on above: Performed By: #### L 500.4050, L501.9520, L500.4100, L100.0100 #### [facility] [address] [place], [address] Potassium [Moles/Vol] 4.4 mmol/L Normal 3.5-5.1 [facility] Comment on above: Performed By: #### L 500.4050, L501.9520, L500.4100, L100.0100 #### [facility] [address] [place], [address] Sodium [Moles/Vol] 140 mmol/L Normal 136-145 [facility] Comment on above: Performed By: #### L 500.4050, L501.9520, L500.4100, L100.0100 #### [facility] [address] [place], [address] T PROT 7.4 g/dL Normal 6.4-8.2 [facility] Comment on above: Performed By: #### L 500.4050, L501.9520, L500.4100, L100.0100 #### [facility] [address] [place], [address] Urea nitrogen [Mass/Vol] 18 mg/dL Normal 7-18 [facility] Comment on above: Performed By: #### L 500.4050, L501.9520, L500.4100, L100.0100 #### [facility] [address] [place], [address] Lipid Profileon 09-10-2024 Cholesterol [Mass/Vol] 217 mg/dL High 200 [facility] Comment on above: Result Comment: <200 mg/dL Desirable 200-240 mg/dL Borderline >240 mg/dL High Risk Performed By: #### L 500.4050, L501.9520, L500.4100, L100.0100 #### [facility] [address] [place], [address] Cholesterol in HDL [Mass/Vol] 69 mg/dL Normal [facility] Comment on above: Result Comment: The drugs N-Acetylcysteine and Metamizole may falsely depress this assay. Reference Range HDL <40 mg/dL Low HDL Cholesterol HDL >or= 60 mg/dL High HDL Cholesterol Performed By: #### L 500.4050, L501.9520, L500.4100, L100.0100 #### [facility] [address] [place], [address] Cholesterol in LDL [Mass/Vol] 124 mg/dL Normal 0-130 [facility] Comment on above: Performed By: #### L 500.4050, L501.9520, L500.4100, L100.0100 #### [facility] [address] [place], [address] Cholesterol in VLDL [Mass/Vol] 24 mg/dL Normal 5-40 [facility] Comment on above: Performed By: #### L 500.4050, L501.9520, L500.4100, L100.0100 #### [facility] [address] [place], [address] Triglyceride [Mass/Vol] 120 mg/dL Normal [facility] Comment on above: Result Comment: The drugs N-Acetylcysteine and Metamizole may falsely depress this assay. Serum Triglycerides Reference Interval Normal <150 mg/dL Borderline high 150 - 199 mg/dL High 200 - 499 mg/dL Very High > or = 500 mg/dL Performed By: #### L 500.4050, L501.9520, L500.4100, L100.0100 #### [facility] [address] [place], [address] Thyroid Stim Hormone (TSH)on 09-10-2024 TSH 1.640 uIU/mL Normal 0.358-3.740 [facility] Comment on above: Performed By: #### L 500.4050, L501.9520, L500.4100, L100.0100 #### [facility] [address] [place], [address] XR Pelvis and Hip - right AP and Lateral frogon 06-04-2024 IMPRESSION: No acute fracture or dislocation of the pelvis and right hip. Center Customer Service Associate: LYDIA Transcribe Date/Time: Jun 04 2024 2:11P Dictated by : JIMMIE VITALE MD This examination was interpreted and the report reviewed and electronically signed by: JIMMIE VITALE MD on Jun 04 2024 2:12PM EST [facility] * * *Final Report* * [...] right-sided degenerative changes. No fracture or dislocation. [facility] Provider, [facility] - 06/04/2024 * * *Final Report* * [...] dislocation of the pelvis and right hip. Center Customer Service Associate: PSCB Transcribe Date/Time: Jun 04 2024 2:11P Dictated by : JIMMIE VITALE MD This examination was interpreted and the report reviewed and electronically signed by: JIMMIE VITALE MD on Jun 04 2024 2:12PM EST [facility] Radiology Study observation (narrative) [facility] XR Pelvis and Hip - right AP and Lateral frogOrdered By: Ccf Provider on 06-04-2024 [facility] No Panel InformationOrdered By: Fernanda Hammonds on 08-08-2023 Thyroid Stimulating Hormone (TSH) 1.60 uIU/mL 0.358-3.74 [facility] Absolute lymphocyte countOrd ered By: Fernanda Hammonds on 05-15-2023 Lymphocytes Auto (Unsp spec) [#/Vol] 1.77 10*3/uL 0.83-4.51 [facility] Basophil percentageOrdered B y: Fernanda Hammonds on 05-15-2023 Basophils/100 WBC (Bld) 0.8 % 0-1 [facility] Bilirubin [Mass/Vol] 0.30 mg/dL 0.20-1.00 [facility] Comment on above: For patients on eltr ombopag therapy, use of Dimension Rake TBIL is not recommended. Chloride [Moles/Vol] 105 mmol/L 98-107 [facility] Cholesterol [Mass/Vol] 234 mg/dL <200 [facility] Comment on above: <200 mg/dL Desirable 200-240 mg/dL Borderline >240 mg/dL High Risk Eosinophils/100 WBC (Bld) 2.6 % 0-5 [facility] Glucose [Mass/Vol] 103 mg/dL 74-106 [facility] Comment on above: Fasting Glucose resu lt from 100 to 125 mg/dL suggests IMPAIRED HOMEOSTASIS per A.D.A. criteria. Neutrophils (Bld) [#/Vol] 3.6 10*3/uL 2.0-7.7 [facility] Neutrophils/100 WBC (Bld) 58.2 % 47-70 [facility] Potassium [Moles/Vol] 4.0 mmol/L 3.5-5.1 [facility] Protein [Mass/Vol] 7.5 g/dL 6.4-8.2 [facility] Sodium [Moles/Vol] 139 mmol/L 136-145 [facility] Triglyceride [Mass/Vol] 158 mg/dL <199 [facility] Comment on above: The drugs N-Acetylcy steine and Metamizole may falsely depress this assay.Serum Triglycerides Reference Interval Normal <150 mg/dL Borderline high 150 - 199 mg/dL High 200 - 499 mg/dL Very High > or = 500 mg/dL WBC (Bld) [#/Vol] 6.2 10*3/uL 4.4-11.0 [facility] Blood erythrocytes count (nu mber/volume)Ordered By: Fernanda Hammonds on 05-15-2023 RBC (Bld) [#/Vol] 4.28 10*6/uL 4.2-5.4 [facility] Blood hemoglobin measurement (mass/volume)Ordered By: Fernanda Hammonds on 05-15-2023 Hemoglobin (Bld) [Mass/Vol] 13.1 g/dL 12.0-15.0 [facility] Blood lymphocytes/100 leukoc ytesOrdered By: Fernanda Hammonds on 05-15-2023 Lymphocytes/100 WBC (Bld) 28.8 % 19-41 [facility] Blood monocytes/100 leukocyt esOrdered By: Fernanda Hammonds on 05-15-2023 Monocytes/100 WBC (Bld) 9.4 % 0-10 [facility] Blood platelet mean volumeOr dered By: Fernanda Hammonds on 05-15-2023 Platelet mean volume (Bld) [Entitic vol] 11.2 fL 6.2-12.0 [facility] Determination of erythrocyte mean corpuscular volume (MCV)Ordered By: Fernanda Hammonds on 05-15-2023 MCV (RBC) [Entitic vol] 90.4 fL 81-99 [facility] Hematocrit Auto (Bld) [Volum e fraction]Ordered By: Fernanda Hammonds on 05-15-2023 Hematocrit (Bld) [Volume fraction] 38.7 % 37-47 [facility] Laboratory - Chemistry and C hemistry - challengeOrdered By: Fernanda Hammonds on 05-15-2023 ALP [Catalytic activity/Vol] 95 U/L 45-117 [facility] ALT [Catalytic activity/Vol] 29 U/L 13-56 [facility] CO2 [Moles/Vol] 25.0 mmol/L 21.0-32.0 [facility] Globulin (S) [Mass/Vol] 3.6 g/dL 2.2-4.2 [facility] Urea nitrogen/Creatinine [Mass ratio] 26.6 mg/mg 10-20 [facility] Laboratory - Hematology and Cell countsOrdered By: Fernanda Hammonds on 05-15-2023 Erythrocyte distribution width (RBC) [Entitic vol] 43.3 fL 35.1-43.9 [facility] Erythrocyte distribution width (RBC) [Ratio] 13.2 % 11.6-14.6 [facility] Immature granulocytes/100 WBC (Bld) 0.200 % 0.0-0.9 [facility] Comment on above: IG% - Immature Granu locytes (promyelocytes, myelocytes and metamyelocytes) > 1% indicates that a LEFT SHIFT is Present. MCH (RBC) [Entitic mass] 30.6 pg 27.0-32.0 [facility] Nucleated RBC/100 WBC (Bld) [Ratio] 0 % 0-5 [facility] MCHC Auto (RBC) [Mass/Vol]Or dered By: Fernanda Hammonds on 05-15-2023 MCHC (RBC) [Mass/Vol] 33.9 g/dL 32-36 [facility] No Panel InformationOrdered By: Fernanda Hammonds on 05-15-2023 Estimated GFR (MDRD) Amer 89 mL/min >60 [facility] Comment on above: GFR Calc Estimated GFR (MDRD) Non-Af Amer 73 mL/min >60 [facility] Comment on above: Non- GFR Calc Thyroid Stimulating Hormone (TSH) 0.23 uIU/mL 0.358-3.74 [facility] Platelets bldOrdered By: Heraclio Hammonds on 05-15-2023 Platelets (Bld) [#/Vol] 311 10*3/uL 150-450 [facility] Serum or plasma albumin oanh urement (mass/volume)Ordered By: Fernanda Hammonds on 05-15-2023 Albumin [Mass/Vol] 3.9 g/dL 3.2-5.0 [facility] Serum or plasma albumin/glob ulin mass ratioOrdered By: Fernanda Hammonds on 05-15-2023 Albumin/Globulin [Mass ratio] 1.1 {ratio} 0.9-2.4 [facility] Serum or plasma calcium oanh urement (mass/volume)Ordered By: Fernanda Hammonds on 05-15-2023 Calcium [Mass/Vol] 9.0 mg/dL 8.5-10.1 [facility] Serum or plasma cholesterol in HDL measurement (mass/volume)Ordered By: Fernanda Hammonds on 05-15-2023 Cholesterol in HDL [Mass/Vol] 68 mg/dL >40 [facility] Comment on above: The drugs N-Acetylcy steine and Metamizole may falsely depress this assay. Reference Range HDL <40 mg/dL Low HDL Cholesterol HDL >or= 60 mg/dL High HDL Cholesterol Serum or plasma cholesterol in VLDL measurement (mass/volume)Ordered By: Fernanda Hammonds on 05-15-2023 Cholesterol in VLDL [Mass/Vol] 32 mg/dL 5-40 [facility] Serum or plasma creatinine m easurement (mass/volume)Ordered By: Fernanda Hammonds on 05-15-2023 Creatinine [Mass/Vol] 0.83 mg/dL 0.55-1.02 [facility] Comment on above: The validity of the calculated GFR & GFRAA in patients over 70 years has not been determined. Clinical correlation is essential. Serum or plasma low density lipoprotein (LDL) cholesterol measurement (mass/volume)Ordered By: Fernanda Hammonds on 05-15-2023 Cholesterol in LDL [Mass/Vol] 134 mg/dL 0-130 [facility] Serum or plasma urea nitroge n measurement (mass/volume)Ordered By: Fernanda Hammonds on 05-15-2023 Urea nitrogen [Mass/Vol] 22 mg/dL 7-18 [facility] Thin prep Papanicolaou smear with manual screeningOrdered By: Fernanda Hammonds on 05-15-2023 Thin prep Papanicolaou smear with manual screening 18 U/L 15-37 [facility] Thin prep Papanicolaou smear with manual screening 9 5-15 [facility] Absolute lymphocyte counton 05-08-2022 Lymphocytes Auto (Unsp spec) [#/Vol] 1.99 10*3/uL 0.83-4.51 [facility] Work Phone: Basophil percentageon 2021 Basophils/100 WBC (Bld) 0.6 % 0-1 [facility] Work Phone: Bilirubin [Mass/Vol] 0.40 mg/dL 0.20-1.00 [facility] Work Phone: Comment on above: For patients on eltr ombopag therapy, use of Dimension Rake TBIL is not recommended. Chloride [Moles/Vol] 107 mmol/L 98-107 [facility] Work Phone: Cholesterol [Mass/Vol] 232 mg/dL <200 [facility] Work Phone: Comment on above: <200 mg/dL Desirable 200-240 mg/dL Borderline >240 mg/dL High Risk Eosinophils/100 WBC (Bld) 3.6 % 0-5 [facility] Work Phone: Glucose [Mass/Vol] 131 mg/dL 74-106 [facility] Work Phone: Comment on above: Fasting Glucose resu lt greater than or equal to 126 mg/dL suggests DIABETES MELLITUS per A.D.A. criteria. Neutrophils (Bld) [#/Vol] 3.6 10*3/uL 2.0-7.7 [facility] Work Phone: Neutrophils/100 WBC (Bld) 56.1 % 47-70 [facility] Work Phone: Potassium [Moles/Vol] 3.8 mmol/L 3.5-5.1 [facility] Work Phone: Protein [Mass/Vol] 7.2 g/dL 6.4-8.2 [facility] Work Phone: Sodium [Moles/Vol] 141 mmol/L 136-145 [facility] Work Phone: Triglyceride [Mass/Vol] 216 mg/dL <199 [facility] Work Phone: Comment on above: The drugs N-Acetylcy steine and Metamizole may falsely depress this assay.Serum Triglycerides Reference Interval Normal <150 mg/dL Borderline high 150 - 199 mg/dL High 200 - 499 mg/dL Very High > or = 500 mg/dL WBC (Bld) [#/Vol] 6.3 10*3/uL 4.4-11.0 [facility] Work Phone: Blood erythrocytes count (nu mber/volume)on 05-08-2022 RBC (Bld) [#/Vol] 4.32 10*6/uL 4.2-5.4 [facility] Work Phone: Blood hemoglobin measurement (mass/volume)on 05-08-2022 Hemoglobin (Bld) [Mass/Vol] 12.9 g/dL 12.0-15.0 [facility] Work Phone: Blood lymphocytes/100 leukoc yteson 05-08-2022 Lymphocytes/100 WBC (Bld) 31.4 % 19-41 [facility] Work Phone: Blood monocytes/100 leukocyt eson 05-08-2022 Monocytes/100 WBC (Bld) 8.1 % 0-10 [facility] Work Phone: Blood platelet mean volumeon 05-08-2022 Platelet mean volume (Bld) [Entitic vol] 11.6 fL 6.2-12.0 [facility] Work Phone: Determination of erythrocyte mean corpuscular volume (MCV)on 05-08-2022 MCV (RBC) [Entitic vol] 91.0 fL 81-99 [facility] Work Phone: Hematocrit Auto (Bld) [Volum e fraction]on 05-08-2022 Hematocrit (Bld) [Volume fraction] 39.3 % 37-47 [facility] Work Phone: Laboratory - Chemistry and C hemistry - challengeon 05-08-2022 ALP [Catalytic activity/Vol] 86 U/L 45-117 [facility] Work Phone: ALT [Catalytic activity/Vol] 31 U/L 13-56 [facility] Work Phone: CO2 [Moles/Vol] 28.0 mmol/L 21.0-32.0 [facility] Work Phone: Globulin (S) [Mass/Vol] 3.4 g/dL 2.2-4.2 [facility] Work Phone: Urea nitrogen/Creatinine [Mass ratio] 26.9 mg/mg 10-20 [facility] Work Phone: Laboratory - Hematology and Cell countson 05-08-2022 Erythrocyte distribution width (RBC) [Entitic vol] 44.0 fL 35.1-43.9 [facility] Work Phone: Erythrocyte distribution width (RBC) [Ratio] 13.2 % 11.6-14.6 [facility] Work Phone: Immature granulocytes/100 WBC (Bld) 0.200 % 0.0-0.9 [facility] Work Phone: Comment on above: IG% - Immature Granu locytes (promyelocytes, myelocytes and metamyelocytes) > 1% indicates that a LEFT SHIFT is Present. MCH (RBC) [Entitic mass] 29.9 pg 27.0-32.0 [facility] Work Phone: Nucleated RBC/100 WBC (Bld) [Ratio] 0 % 0-5 [facility] Work Phone: MCHC Auto (RBC) [Mass/Vol]on 05-08-2022 MCHC (RBC) [Mass/Vol] 32.8 g/dL 32-36 [facility] Work Phone: No Panel Informationon 05-08 Estimated GFR (MDRD) Amer 107 mL/min >60 [facility] Work Phone: Comment on above: GFR Calc Estimated GFR (MDRD) Non-Af Amer 88 mL/min >60 [facility] Work Phone: Comment on above: Non- GFR Calc Thyroid Stimulating Hormone (TSH) 0.41 uIU/mL 0.358-3.74 [facility] Work Phone: Platelets bldon 05-08-2022 Platelets (Bld) [#/Vol] 280 10*3/uL 150-450 [facility] Work Phone: Serum or plasma albumin oanh urement (mass/volume)on 05-08-2022 Albumin [Mass/Vol] 3.8 g/dL 3.2-5.0 [facility] Work Phone: Serum or plasma albumin/glob ulin mass ratioon 05-08-2022 Albumin/Globulin [Mass ratio] 1.1 {ratio} 0.9-2.4 [facility] Work Phone: Serum or plasma calcium oanh urement (mass/volume)on 05-08-2022 Calcium [Mass/Vol] 8.8 mg/dL 8.5-10.1 [facility] Work Phone: Serum or plasma cholesterol in HDL measurement (mass/volume)on 05-08-2022 Cholesterol in HDL [Mass/Vol] 58 mg/dL >40 [facility] Work Phone: Comment on above: The drugs N-Acetylcy steine and Metamizole may falsely depress this assay. Reference Range HDL <40 mg/dL Low HDL Cholesterol HDL >or= 60 mg/dL High HDL Cholesterol Serum or plasma cholesterol in VLDL measurement (mass/volume)on 05-08-2022 Cholesterol in VLDL [Mass/Vol] 43 mg/dL 5-40 [facility] Work Phone: Serum or plasma creatinine m easurement (mass/volume)on 05-08-2022 Creatinine [Mass/Vol] 0.71 mg/dL 0.55-1.02 [facility] Work Phone: Comment on above: The validity of the calculated GFR & GFRAA in patients over 70 years has not been determined. Clinical correlation is essential. Serum or plasma low density lipoprotein (LDL) cholesterol measurement (mass/volume)on 05-08-2022 Cholesterol in LDL [Mass/Vol] 131 mg/dL 0-130 [facility] Work Phone: Serum or plasma urea nitroge n measurement (mass/volume)on 05-08-2022 Urea nitrogen [Mass/Vol] 19 mg/dL 7-18 [facility] Work Phone: Thin prep Papanicolaou smear with manual screeningon 05-08-2022 Thin prep Papanicolaou smear with manual screening 23 U/L 15-37 [facility] Work Phone: Thin prep Papanicolaou smear with manual screening 6 5-15 [facility] Work Phone: Basophil percentageon 2021 Cholesterol [Mass/Vol] 250 mg/dL <200 [facility] Work Phone: Comment on above: <200 mg/dL Desirable 200-240 mg/dL Borderline >240 mg/dL High Risk Glucose [Mass/Vol] 101 mg/dL 74-106 [facility] Work Phone: Comment on above: Fasting Glucose resu lt from 100 to 125 mg/dL suggests IMPAIRED HOMEOSTASIS per A.D.A. criteria. Triglyceride [Mass/Vol] 89 mg/dL <199 [facility] Work Phone: Comment on above: The drugs N-Acetylcy steine and Metamizole may falsely depress this assay.Serum Triglycerides Reference Interval Normal <150 mg/dL Borderline high 150 - 199 mg/dL High 200 - 499 mg/dL Very High > or = 500 mg/dL No Panel Informationon 02-05 Vitamin D 25-Hydroxy 24.3 ng/mL [facility] Work Phone: Comment on above: Vitamin D 25(OH) Sta tus Range Deficiency <20 ng/mL (50nmol/L) Insufficiency 20 - 30 ng/mL (50 - 75 nmol/L) Sufficiency 30 - 100 ng/mL (75 - 250 nmol/L) Toxicity >100 ng/mL (>250 nmol/L) Serum or plasma cholesterol in HDL measurement (mass/volume)on 02-05-2022 Cholesterol in HDL [Mass/Vol] 72 mg/dL >40 [facility] Work Phone: Comment on above: The drugs N-Acetylcy steine and Metamizole may falsely depress this assay. Reference Range HDL <40 mg/dL Low HDL Cholesterol HDL >or= 60 mg/dL High HDL Cholesterol Serum or plasma cholesterol in VLDL measurement (mass/volume)on 02-05-2022 Cholesterol in VLDL [Mass/Vol] 18 mg/dL 5-40 [facility] Work Phone: Serum or plasma low density lipoprotein (LDL) cholesterol measurement (mass/volume)on 02-05-2022 Cholesterol in LDL [Mass/Vol] 160 mg/dL 0-130 [facility] Work Phone: Laboratory - Chemistry and C hemistry - challengeon 10-26-2021 Bilirubin Ql (U) Negative [facility] Work Phone: Glucose Ql (U) Negative [facility] Work Phone: Ketones Ql (U) Negative [facility] Work Phone: pH (U) 7.0 [pH] [facility] Work Phone: Specific gravity (U) [Rel density] 1.030 [facility] Work Phone: Urobilinogen (U) [Mass/Vol] 0.3177918 mg/dL [facility] Work Phone: Laboratory - Hematology and Cell countson 10-26-2021 Hemoglobin Ql (U) Small [facility] Work Phone: Laboratory - Specimen inform ationon 10-26-2021 Clarity (U) Clear [facility] Work Phone: Color (U) STRAW [facility] Work Phone: Laboratory - Urinalysison Nitrite Ql (U) Negative [facility] Work Phone: Protein Ql (U) Negative [facility] Work Phone: No Panel Informationon 10-26 Urine Bacteria None Seen [facility] Work Phone: Urine Leukocytes Positive [facility] Work Phone: Urine Microscopic RBC Small [facility] Work Phone: Urine Microscopic WBC Moderate [facility] Work Phone: Urine Non-Hemolyzed Blood [facility] Work Phone: Office Visit: est annualon 0 06-13-2017 Documentation of current medications (procedure) Done Invalid Interpretation Code [facility] Tobacco smoking status NHIS Never [facility] Tobacco smoking status NHIS Never smoker [facility] Tobacco use [facility] Never smoker Invalid Interpretation Code [facility] Office Visit: est annualon 0 06-11-2016 Breast Mammogram screening Normal Bilateral [facility] Office Visit: est annualon 0 11-11-2012 General categories [Interpretation] of Cervical or vaginal smear or scraping by Cyto stain Normal [facility] Vital Signs Date Time Vital Sign Value Performing Clinician Facility 12-02-2023 09:12-0500 Body height 162.56 cm MOP WORKERKallie Hammonds [employer] Work Phone: [facility] 12-02-2023 09:05-0500 Body mass index (BMI) [Ratio] 24.7 kg/m2 [employer] WORK[employer]-Reyna Hammonds [employer] Work Phone: [facility] 12-02-2023 09:05-0500 Body weight 65.43 kg M[employer] WORKER-Reyna Hammonds [employer] Work Phone: [facility] 12-02-2023 09:05-0500 Diastolic blood pressure 62 mm[Hg] MOP WORKER-Reyna Hammonds [employer] WORK[employer] Work Phone: [facility] 12-02-2023 09:05-0500 Systolic blood pressure 110 mm[Hg] MOP WORKER-Reyna Hammonds [employer] Work Phone: [facility] 05-08-2022 14:53-0400 Body height 162.56 cm [facility] Work Phone: 05-08-2022 14:53-0400 Body mass index (BMI) [Ratio] 23.6 kg/m2 [facility] Work Phone: 05-08-2022 14:53-0400 Body temperature 97.9 [degF] [facility] Work Phone: 05-08-2022 14:53-0400 Body weight 62.59 kg [facility] Work Phone: 05-08-2022 14:53-0400 Diastolic blood pressure 60 mm[Hg] [facility] Work Phone: 05-08-2022 14:53-0400 Heart rate 82 /min [facility] Work Phone: 05-08-2022 14:53-0400 Respiratory rate 18 /min [facility] Work Phone: 05-08-2022 14:53-0400 SaO2% (BldA) [Mass fraction] 94 % [facility] Work Phone: 05-08-2022 14:53-0400 Systolic blood pressure 110 mm[Hg] [facility] Work Phone: 01-08-2022 07:19-0500 Body height 162.56 cm M[employer] WORKER-Reyna Hammonds [employer] WORK[employer] Work Phone: [facility] Work Phone: 01-08-2022 07:19-0500 Body mass index (BMI) [Ratio] 23.7 kg/m2 [employer] WORK[employer]-C Fernanda Hammonds [employer] WORK[employer] Work Phone: [facility] Work Phone: 01-08-2022 07:19-0500 Body weight 62.76 kg [employer] WORK[employer]-C Fernanda Hammonds [employer] Work Phone: [facility] Work Phone: 01-08-2022 07:19-0500 Diastolic blood pressure 70 mm[Hg] [employer] WORKER-C Fernanda Hammonds M[employer] WORKER Work Phone: [facility] Work Phone: 01-08-2022 07:19-0500 Systolic blood pressure 112 mm[Hg] MOP WORKER-Reyna Hammonds M[employer] WORKER Work Phone: [facility] Work Phone: 10-26-2021 15:19-0500 Body mass index (BMI) [Ratio] 23.3 kg/m2 [employer] WORK[employer]-Reyna Hammonds [employer] WORK[employer] Work Phone: [facility] Work Phone: 10-26-2021 15:19-0500 Body temperature 97.5 [degF] M[employer] WORKER-Reyna Hammonds [employer] WORK[employer] Work Phone: [facility] Work Phone: 10-26-2021 15:19-0500 Body weight 61.68 kg MOP WORKER-Reyna Hammonds M[employer] WORKER Work Phone: [facility] Work Phone: 10-26-2021 15:19-0500 Diastolic blood pressure 60 mm[Hg] M[employer] WORKER-C Fernanda Hammonds MOP WORKER Work Phone: [facility] Work Phone: 10-26-2021 15:19-0500 Heart rate 75 /min [employer] WORK[employer]-C Fernanda Hammonds M[employer] WORKER Work Phone: [facility] Work Phone: 10-26-2021 15:19-0500 Respiratory rate 18 /min [employer] WORK[employer]-C Fernanda Hammonds MOP WORKER Work Phone: [facility] Work Phone: 10-26-2021 15:19-0500 SaO2% (BldA) [Mass fraction] 97 % [employer] WORK[employer]-C Fernanda Hammonds M[employer] WORKER Work Phone: [facility] Work Phone: 10-26-2021 15:19-0500 Systolic blood pressure 100 mm[Hg] MOP WORKER-C Fernanda Hammonds M[employer] WORK[employer] Work Phone: [facility] Work Phone: 06-13-2017 09:21-0400 BMI (Body Mass Index) 22.62 kg/m2 Trini Hernandez NP [facility] 06-13-2017 09:21-0400 Body Temperature 97.2 [degF] Trini Hernandez NP [facility] 06-13-2017 09:21-0400 BP Diastolic 73 mm[Hg] Trini Hernandez MOP WORKER [facility] 06-13-2017 09:21-0400 BP Systolic 112 mm[Hg] Trini Hernandez NP [facility] 06-13-2017 09:21-0400 Height 162.56 cm Trini Hernandez NP [facility] 06-13-2017 09:21-0400 Pulse (Heart Rate) 63 /min Trini Hernandez NP [facility] 06-13-2017 09:21-0400 Respiratory Rate 16 /min Trini Hernandez NP [facility] 06-13-2017 09:21-0400 Weight 59.78 kg Trini Hernandez MOP WORKER [facility] Encounters Encounter Date Encounter Type Care Provider Facility Start: 12-23-2024 End: 12-23-2024 ambulatory Fernanda Hammonds [facility] WORKER [place] [place]: 12-23-2024 End: 12-23-2024 ambulatory Fernanda Hammonds MOP WORKER Facility:[facility] Start: 09-09-2024 End: 09-09-2024 ambulatory Fernanda Hammonds MOP WORKER Facility:[facility] Start: 06-04-2024 End: 06-04-2024 Subsequent hospital visit by physician [facility] Comment on above: Pain in right hip [M 25.551] Start: 12-02-2023 End: 12-02-2023 ambulatory MOP WORKER-Reyna Hammonds M[employer] WORKER Work Phone: [facility] Work Phone: Start: 12-02-2023 End: 12-02-2023 Patient encounter procedure MOP WORKER-Reyna Hammonds MOP WORKER Work Phone: [facility] Work Phone: Start: 08-08-2023 End: 08-08-2023 Patient encounter procedure MOP WORKER-Reyna Hammonds [facility] Work [facility] Start: 05-15-2023 End: 05-15-2023 ambulatory [facility] Work Phone: Start: 05-15-2023 End: 05-15-2023 Patient encounter procedure [facility] Work Phone: Start: 05-08-2022 End: 05-08-2022 Patient encounter procedure [facility] Start: 02-05-2022 End: 02-05-2022 Patient encounter procedure MOP WORKER-Reyna Hammonds MOP WORKER Work Phone: [facility] Start: 01-08-2022 End: 01-08-2022 Patient encounter procedure MOP WORKER-Reyna Hammonds MOP WORKER Work Phone: [facility]-Outpatient Breast Imaging Procedures Date Procedure Procedure Detail Performing Clinician Start: 06-04-2024 Radex hip unilateral with pelvis 2-3 views Fernanda Hammonds 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 Work Phone: Start: 12-02-2023 Screening mammography MOP WORKERKallie Bailey on [employer] Work Phone: Start: 01-08-2022 Screening mammography KENTON Bailey on [employer] WORK[employer] Work Phone: Start: 06-13-2017 Gynecologic examination Routine gynecological exam Raiza Weeks MD Start: 06-13-2017 Screening mammography Mammogram yearly screening Raiza Weeks MD Start: 05-27-2013 Colonoscopy [facility] Start: 05-26-2013 Lipid 1996 panel - Serum or Plasma [facility] Plan of Treatment Date Care Activity Detail Author Start: 07-12-2024 Influenza vaccination Influenza Vaccine (#1) [facility] Start: 12-30-2023 Covid-19 Vaccine ( season) Covid-19 Vaccine ( season) [facility] Start: 11-11-2023 Advance Directive Discussion Advance Directive Discussion [facility] Start: 2022 Pneumococcal Vaccine: 65+ (1 of 1 - PCV) Pneumococcal Vaccine: 65+ (1 of 1 - PCV) [facility] Start: 2022 Screening for osteoporosis Bone Density Screening [facility] Start: 05-26-2018 Lipid panel Lipid Screening [facility] Start: 06-20-2017 Screening for malignant neoplasm of breast Mammogram Screening [facility] Start: 06-13-2017 End: 06-13-2017 Appointment Appointment [facility] Start: 06-13-2017 End: 06-13-2017 Mammogram, screening Mammogram, Screening, both breasts [facility] Start: 2017 RSV Vaccine (1 - 1-dose 60+ series) RSV Vaccine (1 - 1-dose 60+ series) [facility] Start: 05-27-2016 Screening for malignant neoplasm of colon [facility] Start: 05-26-2016 Diabetes Screening Diabetes Screening [facility] Start: 2002 Screening for malignant neoplasm of colon [facility] Start: 02-27-1976 Urine microalbumin profile DTaP,Tdap,Td Vaccine (1 - Tdap) [facility] Start: 1975 Anxiety Screening Anxiety Screening [facility] Start: 1975 Depression Screening Depression Screening [facility] Start: 1975 Hepatitis C screening Hepatitis C Screening [facility] Immunizations Immunization Date Immunization Notes Care Provider Fa cility 09-02-2023 influenza virus vaccine, unspecified formulation [facility] 07-26-2020 flu vac qs 2017(4 yr up)CD(PF) MOP WORKER-C Fernanda Hammonds MOP WORKER Work Phone: [facility] Work Phone: Payers Date Payer Category Payer Private Health Insurance [id number] 2024 Self-pay [id number] 2023 Medicare AETNA MEDICARE A ETNA MEDICARE PPO [id number] 2023-Present [phone] [address] [place] [address] PPO [id number] 1997 Unknown [id number] Medicare [id number] Medicare MEDICARE PART A B [id number] Private Health Insurance SELF PAY INSURAN [id number] Unknown [id number] Unknown [id number] Unknown [id number] Social History Date Type Detail Facility Start: 01-08-2022 End: 12-02-2023 Tobacco smoking status NHIS Unknown if ever smoked [facility] Start: 1955 Sex Assigned At Female [facility] Start: 05-27-2014 Tobacco smoking stat us NHIS Never smoked tobacco [facility] Start: 05-27-2014 Tobacco use and exposure Smokeless tobacco non-user [facility] Start: 06-28-2022 Alcohol intake Current drinke r of alcohol (finding) [facility] Start: 1955 Sex Assigned At Not on file [facility] Gender identity Not on file [facility] in History of Present illness Narrative 06-04-[address] - 06/04/2024 8:00 AM EDT Note Date & Type Note Facility 06-04-2024 History of Presen t illness Narrative Radiology Service Progress Note PATIENT NAME: Holly Yoder DATE OF SERVICE: June 04, 2024 TIME: [...] PATIENT PRESENTS WITH AN IMPLANTABLE OR ATTACHED HYDRAULIC BARKER OPERATOR: No RADIOLOGY DEPARTMENT: General X-ray: Exam(s) Completed: Pelvis X-Ray: Pelvis with Hip Right PERIPHERAL IV DATA: Not applicable SIGNED BY: RAHUL Roy June 04, 2024 8:49 AM documented in this encounter [facility] Evaluation note Note Date & Type Note Facility Evaluation note No assessment information availa ble [facility] Work Phone: Evaluation note Note Date & Type Note Facility Evaluation note Diagnosis Onset Date Hypothyroidism (acquired) [place] Seasonal allergies acute [facility] Work Phone: Evaluation note Note Date & Type Note Facility Evaluation note Diagnosis Onset Date Hypothyroidism (acquired) [place] Encounter for routine gyneco logical examination noneactive [facility] Work Phone: Chief Complaint and Reason for Visit Chief Complaint Urinary tract infect ion SCREENING 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) Chief Complaint medication refills & labs drawn Reason for Visit Hypothyroidism (acqu ired) Seasonal allergies Chief Complaint labs to be drawn(TSH ) 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) SCREENING Reason for Visit Hypothyroidism (acqu ired) Encounter for routine gynecological examination Family History No Family History Records Found Relationship Condition Age at Onset Recorded Date/T luz maria Not Specified Diabetes mellitus Unknown Osteoarthritis Unknown Disorder of thyroid Unknown Summary Purpose Advance Directives No Advanced Directives Records Found Additional Source Comments Goals (unrecognized section and content) Goals may be documented in a n alternate sectionGoals may be documented in an alternate sectionGoals may be documented in an alternate sectionGoals may be documented in an alternate section Care Teams (unrecognized sec tion and content) Team Status: Active Member Role Status Terence Hammonds NP, MOP WORKER-C Family Provider Active Team Status: Inactive Member Role Status Dates Fernanda Hammonds NP, MOP WORKER-C Attending Provider Active Team Status: Active Member Role Status Dates Fernanda Hammonds NP, MOP WORKER-C Family Provider Active Fernanda Hammonds NP, MOP WORKER-C Primary Care Provider Active Team Status: Inactive Member Role Status Terence Hernandez NP, MOP WORKER-C Attending Provider Active Fernanda Hmamonds NP, MOP WORKER-C Primary Care Provider, Referr ing Provider Active Team Status: Inactive Member Role Status Dates Trini Hernandez NP, MOP WORKER-C Attending Provider, Referring Provider Active Fernanda Hammonds NP, MOP WORKER-C Primary Care Provider Active Source Comments (unrecognize d section and content) In the event this informatio n is protected by the Federal Confidentiality of Alcohol and Drug Abuse Patient Records regulations: The Federal rules restrict any use of the information to criminally investigate or prosecute any alcohol or drug abuse patient.[facility] INFORMATION SOURCE (unrecogn ized section and content) DATE CREATED AUTHOR 01/08/2025 [facility] FOR RECORDS PERTAINING TO PATIENTS WHO [...] BE BASED ON THE PRIMARY CLINICAL RECORDS. [facility] [employer] [facility]. provides no warranty or guarantee of the accuracy or completeness of information in this document.
== END | disposition home or self-care (01) ==
PROVIDERS: PCP Nurse Practitioner; Referring Provider Nurse Practitioner; Visit Provider Nurse Practitioner
DX: N30.90 Cystitis, unspecified without hematuria (principal)
CPT/HCPCS: 87077; 87086; 87088; 87186